=== PATIENT | female | born 1995 | race Caucasian/White ===

== ENCOUNTER 2020-06-03 17:17 | Emergency (ER) | payer OTHER, SELFPAY ==
--- NOTE | ~2020-06-03 | US_ITS ---
EXAMINATION: US OBSTETRICAL ULTRASOUND CLINICAL INFORMATION: Vaginal bleeding and suspected ectopic COMPARISON: Multiple prior ultrasound. TECHNIQUE: Transabdominal and endovaginal ultrasound was performed FINDINGS: A gestational sac is present in the endometrial canal,. A yolk sac is identified but a pole is not seen. Based upon the gestational sac only, estimated age would be 5 weeks 4 days. A large area of echogenicity is seen beneath the gestational sac most likely a subchorionic hemorrhage measuring 3.2 x 1.2 x 3.7 cm. The right ovary measures 3.4 x 1.5 x 2.4 cm and appears unremarkable. The left ovary measures 5.2 x 4.8 x 4.5 cm and includes a 4.5 x 4.1 x 3.8 cm cyst. US/US OB <= 14 weeks fetus IMPRESSION: 1. A gestational sac is seen and the yolk sac is identified. Based upon gestational sac size, age would be 5 weeks 4 days. Follow-up and correlation with hCG levels is recommended. 2. A pole was not identified 3. Subchorionic hemorrhage is seen. 4. 4.5 cm left ovarian cyst
--- NOTE | ~2020-06-03 | US_ITS ---
EXAMINATION: US OBSTETRICAL ULTRASOUND CLINICAL INFORMATION: Vaginal bleeding and suspected ectopic COMPARISON: Multiple prior ultrasound. TECHNIQUE: Transabdominal and endovaginal ultrasound was performed FINDINGS: A gestational sac is present in the endometrial canal,. A yolk sac is identified but a pole is not seen. Based upon the gestational sac only, estimated age would be 5 weeks 4 days. A large area of echogenicity is seen beneath the gestational sac most likely a subchorionic hemorrhage measuring 3.2 x 1.2 x 3.7 cm. The right ovary measures 3.4 x 1.5 x 2.4 cm and appears unremarkable. The left ovary measures 5.2 x 4.8 x 4.5 cm and includes a 4.5 x 4.1 x 3.8 cm cyst. US/US OB transvaginal IMPRESSION: 1. A gestational sac is seen and the yolk sac is identified. Based upon gestational sac size, age would be 5 weeks 4 days. Follow-up and correlation with hCG levels is recommended. 2. A pole was not identified 3. Subchorionic hemorrhage is seen. 4. 4.5 cm left ovarian cyst
[2020-06-03 18:12] VITALS: BP 160/98; PULSE 61; RESP 16; TEMP 36.5; O2SAT 100; BMI 22.4
[2020-06-03 18:46] LABS: MANUAL DIFF FLAG NO
[2020-06-03 18:47] LABS: Basophils Percent Auto 0.3 % (0-2); Eosinophils Absolute Auto 0.2 X10*3/uL (0.0-0.4); Eosinophils Percent Auto 2.5 % (0-4); Hematocrit 38.8 % (37-47); Hemoglobin 13.2 g/dl (12.0-16.0); Imm Gran Abs Auto 0.02 X10*3/uL (0.00-0.03); Imm Gran Pct Auto 0.3 % (0.0-0.4); Lymphocytes Absolute Auto 2.6 X10*3/uL (1.2-4.9); Lymphocytes Percent Auto 38.6 % (20-40); Mean Corpuscular Hemoglobin 29.3 pg (27.0-33.0); Mean Platelet Volume 9.6 fL (9.4-12.3); Monocytes Absolute Auto 0.6 X10*3/uL (0.1-1.2); Monocytes Percent Auto 9.3 % (2-11); Neutrophils Absolute Auto 3.3 X10*3/uL (2.0-8.3); Platelet Count 251 X10*3/uL (160-400); Red Blood Count 4.51 X10*6/uL (4.20-5.50); Red Cell Distribution Width 13.3 % (11.0-16.0); White Blood Count 6.7 X10*3/uL (4.8-10.8)
[2020-06-03 18:49] LABS: Appearance Urine HAZY; Color Urine PINK; Glucose Urine UA NEG (NEG); Leukocyte Esterase Urine NEG (NEG); Nitrite Urine NEG (NEG); PH 5.5 (5.0-8.0); Urine Blood 3+ (NEG); Urine Ketones NEG (NEG); Urine Protein 1+ MG/DL (NEG-TRACE)
[2020-06-03 18:50] LABS: UPreg QC Valid YES; Urine Pregnancy POSITIVE (NEGATIVE)
[2020-06-03 18:55] LABS: RBC Urine TNTC /HPF (0); WBC Urine 0-2 /HPF (0-4)
[2020-06-03 19:14] LABS: Alanine Aminotransferase 12 U/L (0-31); Albumin Level 4.4 g/dL (3.5-5.0); Alkaline Phosphatase 48 U/L (39-117); Anion Gap 14 (12-20); Aspartate Amino Transferase 13 U/L (5-31); Bilirubin Total 0.5 mg/dL (0.0-1.0); Blood Urea Nitrogen 6 mg/dL (9-16); Calcium 9.3 mg/dL (8.4-10.2); Carbon Dioxide 24 mmol/L (22-29); Chloride 103 mmol/L (96-108); Creatinine Clr Calc Pharmacy 97.7; Estimated Glomerular Filt Rate > 60; Glucose Random 87 mg/dL (60-115); Potassium 3.7 mmol/L (3.3-5.1); Sodium 137 mmol/L (135-145); Total Protein 6.9 g/dL (6.5-8.0)
[2020-06-03 19:20] LABS: HCG Quantitative 6412 mIU/mL
--- NOTE | 2020-06-03 22:20 | ED.PREGNANCY ---
HPI - General Chief complaint: Vaginal Bleeding Stated complaint: abdominal pain, recent positive Time Seen by Provider: 06/03/20 22:20 Source: patient Mode of arrival: ambulatory History of Present Illness HPI Narrative: 25-year-old female presents with LMP of 04/07/2020 and home test on 05/25 that was positive and now presents with onset of lower abdominal cramping this morning with associated vaginal bleeding that has increased in volume but denies any clots. Related Data Allergies Allergy/AdvReac Type Severity Reaction Status Date / Time No Known Allergies Allergy Unverified 10/25/19 16:18 [No Known Allergies*] Review of Systems Review of Systems: Pertinent positives and negatives as stated in HPI 10 point review of systems is otherwise negative. PMFSH Past Medical History Source: nursing notes reviewed Surgical History H/O removal of cyst Social History Social History Advance Directives: No Physical Exam Vital Signs: Vital Signs: Last Vital Signs Temp 97.7 F 06/03/20 18:12 Pulse 71 06/03/20 23:36 Resp 16 06/03/20 23:36 BP 112/67 06/03/20 23:36 Pulse Ox 99 06/03/20 23:36 Body Mass Index 22.4 VITAL SIGNS: Reviewed. GENERAL: Well developed, well nourished, in no acute distress. HEAD: Normocephalic/atraumatic EYES: PERRLA, EOMI OROPHARYNX: no oral lesions noted, posterior pharynx clear NECK: Supple, no adenopathy LUNGS: Normal breath sounds. No adventitious sounds or accessory muscle use. SpO2<100> CARDIOVASCULAR: Regular rate and rhythm without noted murmurs ABDOMEN: Soft, non-tender, non-distended with bowel sounds. NEUROLOGIC: Alert and oriented x 4. Course Course Course Narrative: 25-year-old female with history and clinical presentation consistent with SAB, will rule out ectopic. Review of all investigations consistent with SAB, case discussed with the on-call conference organizer who states that someone will reach out to the patient for repeat ultrasound and follow-up. No other recommendations were provided this time, all results were provided to the patient at bedside and she was discharged in stable condition. Patient's blood type is A positive. MDM - OB/Uterine Contractions Lab Data Result diagrams: 06/03/20 18:33 06/03/20 18:33 Labs: Lab Results 06/03/20 06/03/20 06/03/20 Range/Units 18:33 18:33 18:33 WBC 6.7 (4.8-10.8) X10*3/uL RBC 4.51 (4.20-5.50) X10*6/uL Hgb 13.2 (12.0-16.0) g/dl Hct 38.8 (37-47) % MCV 86.0 (80-98) fL MCH 29.3 (27.0-33.0) pg MCHC 34.0 (31.0-35.0) g/dl RDW 13.3 (11.0-16.0) % Plt Count 251 (160-400) X10*3/uL MPV 9.6 (9.4-12.3) fL Immature Gran % (Auto) 0.3 (0.0-0.4) % Neut % (Auto) 49.0 (45-73) % Lymph % (Auto) 38.6 (20-40) % [place] % (Auto) 9.3 (2-11) % Eos % (Auto) 2.5 (0-4) % Baso % (Auto) 0.3 (0-2) % Lymph # (Auto) 2.6 (1.2-4.9) X10*3/uL [place] # (Auto) 0.6 (0.1-1.2) X10*3/uL Eos # (Auto) 0.2 (0.0-0.4) X10*3/uL Baso # (Auto) 0.0 (0.0-0.2) X10*3/uL Abs Immat Gran (auto) 0.02 (0.00-0.03) X10*3/uL Absolute Neuts (auto) 3.3 (2.0-8.3) X10*3/uL Absolute Nucleated RBC 0.000 (0.0-0.012) X10*3/uL Nucleated RBC % (auto) 0.0 (0.0-0.2) /100WBC Hold Blue Top SEE NOTE Sodium 137 (135-145) mmol/L Potassium 3.7 (3.3-5.1) mmol/L Chloride 103 (96-108) mmol/L Carbon Dioxide 24 (22-29) mmol/L Anion Gap 14 (12-20) BUN 6 L (9-16) mg/dL Creatinine 0.69 (0.5-1.4) mg/dL Estim Creat Clear Calc 97.7 Estimated GFR > 60 Random Glucose 87 (60-115) mg/dL Calcium 9.3 (8.4-10.2) mg/dL Total Bilirubin 0.5 (0.0-1.0) mg/dL AST 13 (5-31) U/L ALT 12 (0-31) U/L Alkaline Phosphatase 48 (39-117) U/L Total Protein 6.9 (6.5-8.0) g/dL Albumin 4.4 (3.5-5.0) g/dL Beta HCG, Quant 6412 mIU/mL Urine Color Urine Appearance Urine pH (5.0-8.0) Ur Specific [place] (1.005-1.025) Urine Protein (NEG-TRACE) MG/DL Urine Glucose (UA) (NEG) MG/DL Urine Ketones (NEG) MG/DL Urine Blood (NEG) Urine Nitrite (NEG) Ur Leukocyte Esterase (NEG) Urine RBC (0) /HPF Urine WBC (0-4) /HPF Ur Squamous Epith Cells /LPF Urine Bacteria /LPF Urine Test (NEGATIVE) Blood Type 06/03/20 06/03/20 06/03/20 Range/Units 18:33 18:33 18:33 WBC (4.8-10.8) X10*3/uL RBC (4.20-5.50) X10*6/uL Hgb (12.0-16.0) g/dl Hct (37-47) % MCV (80-98) fL MCH (27.0-33.0) pg MCHC (31.0-35.0) g/dl RDW (11.0-16.0) % Plt Count (160-400) X10*3/uL MPV (9.4-12.3) fL Immature Gran % (Auto) (0.0-0.4) % Neut % (Auto) (45-73) % Lymph % (Auto) (20-40) % [place] % (Auto) (2-11) % Eos % (Auto) (0-4) % Baso % (Auto) (0-2) % Lymph # (Auto) (1.2-4.9) X10*3/uL [place] # (Auto) (0.1-1.2) X10*3/uL Eos # (Auto) (0.0-0.4) X10*3/uL Baso # (Auto) (0.0-0.2) X10*3/uL Abs Immat Gran (auto) (0.00-0.03) X10*3/uL Absolute Neuts (auto) (2.0-8.3) X10*3/uL Absolute Nucleated RBC (0.0-0.012) X10*3/uL Nucleated RBC % (auto) (0.0-0.2) /100WBC Hold Blue Top Sodium (135-145) mmol/L Potassium (3.3-5.1) mmol/L Chloride (96-108) mmol/L Carbon Dioxide (22-29) mmol/L Anion Gap (12-20) BUN (9-16) mg/dL Creatinine (0.5-1.4) mg/dL Estim Creat Clear Calc Estimated GFR Random Glucose (60-115) mg/dL Calcium (8.4-10.2) mg/dL Total Bilirubin (0.0-1.0) mg/dL AST (5-31) U/L ALT (0-31) U/L Alkaline Phosphatase (39-117) U/L Total Protein (6.5-8.0) g/dL Albumin (3.5-5.0) g/dL Beta HCG, Quant mIU/mL Urine Color PINK Urine Appearance HAZY Urine pH 5.5 (5.0-8.0) Ur Specific [place] 1.020 (1.005-1.025) Urine Protein 1+ H (NEG-TRACE) MG/DL Urine Glucose (UA) NEG (NEG) MG/DL Urine Ketones NEG (NEG) MG/DL Urine Blood 3+ H (NEG) Urine Nitrite NEG (NEG) Ur Leukocyte Esterase NEG (NEG) Urine RBC TNTC H (0) /HPF Urine WBC 0-2 (0-4) /HPF Ur Squamous Epith Cells NONE /LPF Urine Bacteria NONE /LPF Urine Test POSITIVE H (NEGATIVE) Blood Type A Positive Discharge Plan Discharge Clinical Impression: SAB (spontaneous ) Patient Disposition: Home, Self-Care Instructions: Miscarriage (ED) Additional Instructions: 1. Tylenol 1000 mg, orally, every 6 hours as needed for pain control. Do not exceed 4000 mg within 24 hours. 2. May use heating pad as additional symptom relief. 3. Please return to the emergency department should you have to change saturated pads more than 8 times a day. Or have severe pain that is not alleviated by Tylenol and/or heating pad. 4. Dr Flores's office will reach out to for repeat ultrasound as well as follow-up appointment. Referrals: Physician,None [Primary Care Provider] - 2 days
[2020-06-03] MEDS: Acetaminophen 325 MG TABLET 975 MG PO (23:35)
[2020-06-03 23:36] VITALS: BP 112/67; PULSE 71; RESP 16; O2SAT 99
== END 2020-06-04 01:30 | disposition home or self-care (01) ==
PROVIDERS: Emergency Provider Student in an Organized Health Care Education/Training Program
DX: O03.9 Complete or unspecified spontaneous abortion without complication (principal)
CPT/HCPCS: 36415; 76801; 76817; 80053; 81001; 81025; 84702; 85025; 86900; 86901; 99284

== ENCOUNTER 2022-07-26 22:39 | Emergency (ER) | payer OTHER, SELFPAY ==
--- NOTE | ~2022-07-26 | XR_ITS ---
Examination left foot and left ankle. CLINICAL INDICATION: Fall. TECHNIQUE: Left foot 3 views. Left ankle 2 views. COMPARISON: None. FINDINGS: LEFT FOOT: There is no visible acute fracture, dislocation or subluxation. The bones and joints are normal. The soft tissues are normal. LEFT ANKLE: There is mild lateral malleolar soft tissue swelling. No visible acute fracture or dislocation seen. The ankle mortise and subtalar joints are normal. The soft tissues are normal. XR/XR ankle LT 2V IMPRESSION: 1. Unremarkable left foot exam. 2. Mild lateral malleolar soft tissue swelling. No visible acute fracture or dislocation seen.
--- NOTE | ~2022-07-26 | XR_ITS ---
Examination left foot and left ankle. CLINICAL INDICATION: Fall. TECHNIQUE: Left foot 3 views. Left ankle 2 views. COMPARISON: None. FINDINGS: LEFT FOOT: There is no visible acute fracture, dislocation or subluxation. The bones and joints are normal. The soft tissues are normal. LEFT ANKLE: There is mild lateral malleolar soft tissue swelling. No visible acute fracture or dislocation seen. The ankle mortise and subtalar joints are normal. The soft tissues are normal. XR/XR foot LT 2V IMPRESSION: 1. Unremarkable left foot exam. 2. Mild lateral malleolar soft tissue swelling. No visible acute fracture or dislocation seen.
[2022-07-26 23:41] VITALS: BP 116/66; PULSE 61; RESP 20; TEMP 36.3; O2SAT 98; BMI 23.8
[2022-07-27 02:23] VITALS: BP 115/68; PULSE 53; RESP 14; O2SAT 100
--- NOTE | 2022-07-27 03:00 | ED.LOWEXIN ---
HPI - Extremity Injury (Lower) General Chief Complaint: Extremity Injury, Lower Stated Complaint: Left ankle pain/heard a pop Time Seen by Provider: 07/27/22 02:55 Source: patient Mode of arrival: ambulatory Limitations: no limitations History of Present Illness HPI Narrative: Patient coming downstairs rolled her left ankle inside complaining of pain and swelling of dorsum of the left ankle has increased pain on ambulation no other injuries no deformity Related Data Previous Rx's Medication Instructions Recorded ibuprofen 600 mg tablet 600 mg PO Q6H PRN fever or pain 07/27/22 #30 tabs Allergies Allergy/AdvReac Type Severity Reaction Status Date / Time No Known Allergies Allergy Unverified 10/25/19 16:18 [No Known Allergies*] Review of Systems Review of Systems: Yes all other systems are reviewed and are negative PMFSH Past Medical History Surgical History H/O removal of cyst Social History Social History Alcohol intake: never Smoked in Last 30 Days: No Use of substances other than those prescribed or required for medical reasons: No Any prior treatment program specific to substance use: No Advance Directives: No Advance Directives Information Provided: Yes Patient : No Physical Exam Vital Signs: Vital Signs: Last Vital Signs Temp 97.3 F 07/26/22 23:41 Pulse 53 07/27/22 02:23 Resp 14 07/27/22 02:23 BP 115/68 07/27/22 02:23 Pulse Ox 100 07/27/22 02:23 O2 Del Method Room Air 07/26/22 23:41 BMI result Body Mass Index 23.8 Appearance: Alert. Oriented X3. No acute distress. Extremities: No lower extremity edema. No calf tenderness, tenderness soft tissue swelling left dorsum of the foot Neuro: Oriented X 3. Extrem: Ankle/foot/toe images: 1. soft tissue swelling and tenderness no deformity neurovascular intact Medications Administered Discontinued Medications Generic Name Dose Route Start Last Admin Trade Name Freq PRN Reason Stop Dose Admin Ibuprofen 600 mg 07/27/22 02:58 07/27/22 03:06 Ibuprofen 600 Mg Tablet PO 07/27/22 02:59 600 mg ONCE ONE Administration Medical Decision Making Medical Decision Making MDM Narrative: X-ray negative for fracture will apply Ronni wrap provided crutches ibuprofen for pain Discharge Plan Discharge Clinical Impression: Ankle sprain and strain Patient Disposition: Home, Self-Care Instructions: Ankle Sprain (ED) Additional Instructions: Rest, ice, keep it elevated Apply Ronni wrap for support and use crutches for ambulation Ibuprofen for pain Follow with PCP Prescriptions: New ibuprofen 600 mg tablet 600 mg PO Q6H PRN (Reason: fever or pain) Qty: 30 0RF Interventions: ED Discharge Assessment Last Done: 07/27/22 03:09 Discharge Date/Time: 07/27/22 03:12
[2022-07-27] MEDS: Ibuprofen 600 MG TABLET PO (03:06)
== END 2022-07-27 03:12 | disposition home or self-care (01) ==
PROVIDERS: Emergency Provider Internal Medicine
DX: S93.402A Sprain of unspecified ligament of left ankle, initial encounter (principal); M79.672 Pain in left foot; W10.9XXA Fall (on) (from) unspecified stairs and steps, initial encounter; Y93.9 Activity, unspecified; Y92.9 Unspecified place or not applicable; Y99.9 Unspecified external cause status
CPT/HCPCS: 73600; 73620; 99283; 99284